=== PATIENT | male | born 1945 | race Caucasian/White ===

== ENCOUNTER 2017-02-26 08:38 | Emergency (ER) | payer MEDICARE, BC | END 2017-02-26 10:45 | disposition home or self-care (01) | LOC: ER1 08:38 | DX: M54.42 Lumbago with sciatica, left side (principal); G89.29 Other chronic pain; I10 Essential (primary) hypertension; F17.200 Nicotine dependence, unspecified, uncomplicated; Z90.49 Acquired absence of other specified parts of digestive tract | CPT/HCPCS: 72131; 82962; 99283 ==

== ENCOUNTER 2017-03-19 09:49 | Emergency (ER) | payer MEDICARE, BC ==
[2017-03-19 14:01] LABS: HEMOGLOBIN 15.8 gm/dl (14.0-17.5); RED BLOOD COUNT 4.62 M/UL (4.20-5.50); WHITE BLOOD COUNT 12.7 K/UL (4.5-11.0)
[2017-03-19 14:42] LABS: BUN/CREATININE RATIO 24 (0-10)
== END 2017-03-19 18:00 | disposition home or self-care (01) ==
LOC: ER1 09:49
PROVIDERS: Physician Assistant Medical
DX: M54.5 Low back pain (principal); Q61.9 Cystic kidney disease, unspecified; I10 Essential (primary) hypertension; Z90.49 Acquired absence of other specified parts of digestive tract; Z79.899 Other long term (current) drug therapy
CPT/HCPCS: 36415; 80053; 81001; 85025; 86140; 87086; 96361; 96374; 96375; 99284; J1885; J2270; J7030; J7050; Q9962

== ENCOUNTER 2017-04-23 00:29 | Emergency (ER) | payer MEDICARE, BC | END 2017-04-23 03:00 | disposition home or self-care (01) | LOC: ER1 00:29 | DX: R51 Headache (principal) | CPT/HCPCS: 96372; 99283; J1885; Q0163 ==

== ENCOUNTER 2017-09-02 03:42 | Emergency (ER) | payer MEDICARE, BC | END 2017-09-02 04:57 | disposition home or self-care (01) | LOC: ER1 03:42 | DX: R21 Rash and other nonspecific skin eruption (principal); F17.210 Nicotine dependence, cigarettes, uncomplicated; E11.9 Type 2 diabetes mellitus without complications; K21.9 Gastro-esophageal reflux disease without esophagitis; I10 Essential (primary) hypertension; E78.5 Hyperlipidemia, unspecified | CPT/HCPCS: 96372; 99282; J1100 ==

== ENCOUNTER 2020-12-26 14:33 | Emergency (ER) | payer MEDICARE, BC ==
[~2020-12-26 14:33] MED LIST: ADALAT CC60 MG PO; ASPIR-LOW81 MG PO; IMITREX50 MG PO; INTRINSI B12-F1 EACH PO; LIPITOR40 MG PO; LOPRESSOR 25 MG25 MG PO; LOPRESSOR100 MG PO; MEDROL DOSEPAK 24 MG PO; NITROSTAT0.4 MG SL; NORFLEX 100 MG100 MG PO; OMEPRAZOLE20 MG PO; TOPAMAX25 MG PO; VITAMIN B-121000 MCG PO; VITAMIN D 11000 UNIT PO
[2020-12-26 15:33] LABS: HEMOGLOBIN 14.7 gm/dl (14.0-17.5); RED BLOOD COUNT 4.29 M/UL (4.20-5.50); WHITE BLOOD COUNT 10.5 K/UL (4.5-11.0)
[2020-12-26 16:00] LABS: BUN/CREATININE RATIO 18 (0-10)
== END 2020-12-26 17:34 | disposition home or self-care (01) ==
LOC: ER1 14:33
PROVIDERS: Family Medicine
DX: K21.9 Gastro-esophageal reflux disease without esophagitis (principal); K30 Functional dyspepsia; R07.9 Chest pain, unspecified; I10 Essential (primary) hypertension; F17.200 Nicotine dependence, unspecified, uncomplicated; Z79.899 Other long term (current) drug therapy
CPT/HCPCS: 71045; 80053; 82550; 82553; 83874; 84484; 85025; 85610; 93005; 96374; 96375; 99285; C9113; J2405

== ENCOUNTER → 2021-01-01 | Outpatient (CLI) | payer MEDICARE | LOC: KOH-I 12-17 10:30 | DX: R10.9 Unspecified abdominal pain (principal) | CPT/HCPCS: 74150 ==

== ENCOUNTER 2022-01-23 00:54 | Emergency (ER) | payer MEDICARE, BC, OTHER ==
[2022-01-23 03:14] LABS: HEMOGLOBIN 14.7 gm/dl (14.0-17.5); RED BLOOD COUNT 4.32 M/UL (4.20-5.50)
[2022-01-23 03:41] LABS: BUN/CREATININE RATIO 19 (0-10)
[2022-01-23] MEDS ORDERED: LIDOCAINE1 EAC1 TP (06:40)
[2022-01-23] MEDS ORDERED: CYCLOBENZAPRINE10 MG PO (06:40)
== END 2022-01-23 06:30 | disposition home or self-care (01) ==
LOC: ER1 00:54
PROVIDERS: Emergency Medicine
DX: K43.9 Ventral hernia without obstruction or gangrene (principal); N28.1 Cyst of kidney, acquired; E78.5 Hyperlipidemia, unspecified; I10 Essential (primary) hypertension
CPT/HCPCS: 71260; 80053; 81001; 83735; 85025; 96374; 99284; J1885; Q9967

== ENCOUNTER 2022-08-22 15:33 | Emergency (ER) | payer MEDICARE, BC, OTHER ==
[~2022-08-22 15:33] MED LIST changes: +CYCLOBENZAPRINE10 MG PO; +LIDOCAINE1 EAC1 TP
[2022-08-22 17:15] LABS: HEMOGLOBIN 15.6 gm/dl (14.0-17.5); RED BLOOD COUNT 4.52 M/UL (4.20-5.50); WHITE BLOOD COUNT 10.9 K/UL (4.5-11.0)
[2022-08-22 17:43] LABS: BUN/CREATININE RATIO 20 (0-10)
== END 2022-08-22 22:29 | disposition home or self-care (01) ==
LOC: ER1 15:33
PROVIDERS: Emergency Medicine
DX: I10 Essential (primary) hypertension (principal); R07.89 Other chest pain; R51.9 Headache, unspecified; F17.200 Nicotine dependence, unspecified, uncomplicated; E78.5 Hyperlipidemia, unspecified; Z79.82 Long term (current) use of aspirin
CPT/HCPCS: 70450; 71046; 80053; 82550; 82553; 84484; 85025; 93005; 99285